=== PATIENT | female | born 1995 | race African-American/Black ===

== ENCOUNTER 2020-04-03 14:54 | Emergency (ER) | payer BC ==
[~2020-04-03] VITALS: Ht 175.3 cm; Wt 64.9 kg
[2020-04-03] MEDS ORDERED: SYNTHROID150 MCG ORAL (15:02)
[2020-04-03 15:05] VITALS: BP 106/74
[2020-04-03] MEDS ORDERED: IBUPROFEN600 M1 ORAL (15:22)
[2020-04-03] MEDS ORDERED: CLINDAMYCIN HC300 MG ORAL (15:22)
[2020-04-03] MEDS ORDERED: BACTRIM DS TAB1 EAC1 ORAL (15:33)
[2020-04-03] MEDS ORDERED: AUGMENTIN 875-1 EAC1 ORAL (15:33)
--- NOTE | 2020-04-03 15:49 | Emergency Room Report ---
History of Present Illness General Chief Complaint: Skin Rash/Abscess Source: Patient Present Illness HPI 24 year old female with history of hypothyroidism presents with pain and swelling to her right ear onset yesterday morning. The context was that she removed an earring from the right ear 2 days ago and she noticed redness to the area the next morning. She denies any fever. She has mild right sided sore throat and pain with swallowing on the right side. No medications taken. Currently on her period, denies chance of . Denies any symptoms prior to removing the earring. No inner ear pain. 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 Patient History Past Medical History: see triage record Last Menstrual Period: now Now: No Reviewed Nursing Documentation: PMH: Agreed; PSxH: Agreed Nursing Documentation-PMH Past Medical History: No History, Except For Hx Asthma: Yes Review of Systems All Other Systems: negative except mentioned in HPI Physical Exam Vital Signs Date Time Temp Pulse Resp B/P (MAP) Pulse Ox O2 Delivery O2 Flow Rate FiO2 04/03/20 14:56 98.2 87 16 106/74 (85) 99 Room Air Sp02 EP Interpretation: reviewed, normal General Appearance: normal inspection, well appearing, no apparent distress, alert, GCS 15, non-toxic ENT: hearing grossly normal, normal voice, TMs + canals normal, uvula midline, other - Right ear helix with erythema and tenderness. Mild erythema to the right neck, tender to palpation. No evidence of abscess. No mastoid erythmea or tenderness. Normal TM and canal. Neck: full range of motion, supple, thyroid normal, no meningismus, no bony tend Respiratory: chest non-tender, lungs clear, normal breath sounds, no respiratory distress Cardiovascular #1: normal peripheral pulses, regular rate, rhythm Musculoskeletal: normal inspection, normal range of motion, gait/station normal Neurologic: alert, oriented x3, speech normal Psychiatric: judgement/insight normal, mood/affect normal Skin: warm/dry Lymphatic: no adenopathy Medical Decision Making PA Attestation Dr. Winston is my supervising physician whom patient management and care has been discussed with. Diagnostic Impression: Primary Impression: Cellulitis Qualified Codes: L03.90 - Cellulitis, unspecified ER Course Pt. presents to the ED c/o right ear pain, erythema, and swelling s/p removing an earring 2 days ago. Ddx considered but are not limited to cellulitis, abscess, mastoiditis, malignant otitis externa, retropharyngeal abscess, peritonsillar abscess. Vital signs: are WNL, pt. is afebrile H&PE are most consistent with cellulitis. ORDERS: Urine HCG negative. ED INTERVENTIONS: None required at this time. DISCHARGE: Consistent with cellulitis- erythema to the ear is localized to the helix where piercing was. No abscess. No mastoid erythema or tenderness. Oropharynx normal. At this time pt. is stable for d/c to home. Will provide printed patient care instructions, and prescriptions for Augmentin, Bactrim, and Ibuprofen. Advised to return in 24 hours for wound check. Care plan and follow up instructions have been discussed with the patient prior to discharge. Patient verbalizes understanding and agrees with plan. Laboratory Tests Test 04/03/20 15:28 Urine HCG, Qualitative Negative (NEGATIVE) Last Vital Signs Date Time Temp Pulse Resp B/P (MAP) Pulse Ox O2 Delivery O2 Flow Rate FiO2 04/03/20 15:05 98.2 87 16 106/74 99 Room Air Disposition: HOME, SELF-CARE Condition: Stable Scripts Trimethoprim/Sulfamethoxazole 160/800* (BACTRIM DS TABLET*) 1 Each Tablet 1 TAB ORAL TWICE A DAY for 10 Days, #20 TAB Prov: Libia Mathew N. P.A. 04/03/20 Amoxicillin/Potassium Clav 875-125* (AUGMENTIN 875-125 TABLET*) 1 Each Tablet 1 TAB ORAL TWICE A DAY for 10 Days, #20 TAB Prov: NoblesodadaanLaciLibia N. P.A. 04/03/20 Ibuprofen* (MOTRIN*) 600 Mg Tablet 600 MG ORAL Q6HR, #30 TAB Prov: Laci Mathewelle N. P.A. 04/03/20 Patient Instructions: Cellulitis, [id number] Additional Instructions: Take medications as directed. Apply warm compress to the affected area of the ear. Follow up with a Primary Care Provider in 1-2 days, even if your symptoms have resolved. --Please review list of primary care clinics, if you do not already have a primary care provider RETURN TO THE EMERGENCY ROOM IN 24 HOURS FOR RECHECK. RETURN SOONER IF SYMPTOMS WORSEN, YOU HAVE DIFFICULTY SWALLOWING, OR YOU DEVELOP FEVER. Return to the emergency department sooner if new symptoms occur, or current symptoms become worse. - Please note that this Emergency Department Report was dictated using [employer] security architect technology software, occasionally this can lead to erroneous entry secondary to interpretation by the dictation equipment. Libia Mathew. Apr 03, 2020 15:49
== END 2020-04-03 15:50 | disposition home or self-care (01) ==
LOC: EMR 15:32
DX: L03.90 Cellulitis, unspecified (principal); Z88.6 Allergy status to analgesic agent; Z91.048 Other nonmedicinal substance allergy status; E03.9 Hypothyroidism, unspecified
CPT/HCPCS: 81025; 99282